=== PATIENT | male | born 2000 | race Two or more races ===

== ENCOUNTER 2022-11-24 08:26 | Emergency (ER) | payer OTHER, SELFPAY ==
[2022-11-24 08:43] VITALS: BP 141/78; PULSE 117; RESP 20; TEMP 37.1; O2SAT 97; BMI 19.3
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
[2022-11-24] MEDS: Acetaminophen 325 MG TABLET 650 MG PO (09:03)
[2022-11-24] MEDS: Ibuprofen 800 MG TABLET PO (09:03)
[2022-11-24 10:08] VITALS: BP 105/70; PULSE 89; RESP 16; TEMP 37; O2SAT 98
== END 2022-11-24 10:14 | disposition home or self-care (01) ==
PROVIDERS: Emergency Provider Emergency Medicine
DX: S00.83XA Contusion of other part of head, initial encounter (principal); Y04.2XXA Assault by strike against or bumped into by another person, initial encounter; Y93.9 Activity, unspecified; Y92.9 Unspecified place or not applicable; Y99.0 Civilian activity done for income or pay
CPT/HCPCS: 99283

== ENCOUNTER → 2022-11-27 13:40 | Outpatient (BNVA) | payer OTHER, SELFPAY | PROVIDERS: Visit Provider Physician Assistant | DX: Z13.89 Encounter for screening for other disorder (principal) | CPT/HCPCS: 99203 ==